=== PATIENT | female | born 1995 | race African-American/Black ===

== ENCOUNTER 2019-10-30 08:04 | Emergency (ER) | payer OTHER, SELFPAY ==
--- NOTE | 2019-10-30 08:32 | ED.SKABFB ---
HPI - Skin/Abscess/Foreign Bdy General Chief complaint: Skin/Abscess/Foreign Body Stated complaint: Earring back stuck in ear lobe Time Seen by Provider: 10/30/19 08:32 Source: patient and RN notes reviewed History of Present Illness HPI narrative: Patient is a 23-year-old female that presents the urgent care with complaints of an earring back stuck in the right earlobe. Patient states that she noticed the swelling yesterday but is uncertain how long the earring back is been on the right earlobe. Patient states that she got her ears pierced, the second hole, in July and was told not to remove the earrings. Patient states that they told her when it came time she may need pliers to remove them . No other acute complaints. Denies any known fever, chills, nausea, vomiting. No acute distress noted. Patient read the plan of care. Related Data Allergies Allergy/AdvReac Type Severity Reaction Status Date / Time No Known Allergies Allergy Verified 10/30/19 08:34 Review of Systems Review of Systems: Narrative: CONSTITUTIONAL: Denies fever, chills, or sweats. EYES: Denies visual changes, redness, or discharge. ENT: Denies rhinorrhea, congestion, sore throat, or otalgia. Reports of right earlobe swelling due to foreign body CARDIOVASCULAR: Denies chest pain, palpitations, or edema. RESPIRATORY: Denies cough or dyspnea. GASTROINTESTINAL: Denies abdominal pain, nausea, vomiting, or diarrhea. GENITOURINARY: Denies dysuria or hematuria. SKIN: Denies rash or itching. MUSCULOSKELETAL: Denies back pain, joint pain, or myalgia. NEUROLOGIC: Denies headache, numbness, or weakness. All other systems reviewed are negative, except as documented in HPI. [facility] Social History Social History Gender identity (if verbalized by the patient): Female Comments At the time of my signature, I reviewed and agree with the nursing past medical, surgical, social, and family history. There is no relevant family history pertinent to the patient complaint. Exam Narrative: Exam Narrative: GENERAL: This is a well-nourished, well-developed patient, in no apparent distress. HEAD: normocephalic, atraumatic. EYES: PERRL. Sclera clear/white. Vision is grossly intact. EARS: Right external ear normal; left external earlobe with mild swelling and notable pustule drainage with assessment, obvious foreign body to the left earlobe NOSE: External nose normal with no obvious nasal discharge THROAT: Mucous membranes moist NECK: Neck supple, non-tender without lymphadenopathy, masses or thyromegaly. SKIN: warm, intact with no suspicious lesions or rash, good texture and turgor. NEURO: awake, alert, and oriented to person, place and time. There were no obvious focal neurologic abnormalities. EXTREMITIES: No clubbing, cyanosis, or edema. Course Vital Signs Vital signs: Vital Signs Temperature 97.9 F 10/30/19 08:34 Pulse Rate 86 10/30/19 08:34 Respiratory Rate 16 10/30/19 08:34 Blood Pressure 132/79 10/30/19 08:34 Pulse Oximetry 100 10/30/19 08:34 Temperature 97.9 F 10/30/19 08:34 Pulse Rate 86 10/30/19 08:34 Respiratory Rate 16 10/30/19 08:34 Blood Pressure 132/79 10/30/19 08:34 Pulse Oximetry 100 10/30/19 08:34 Reviewed Procedures FB Removal Ear Foreign Body #1: Foreign Body Suspected: other (Earring back in the right earlobe) Foreign Body Removed: yes Patient Tolerated Procedure: well Complications: none Additional Comments: Earring back passed through the back of the right earlobe successfully with mild pain and notable clear to yellow pustular drainage. Bilateral earrings removed using hemostat. Patient tolerated well. No complications. MDM - Skin/Abscess/Foreign Bdy MDM Narrative Medical decision making narrative: Advised the to clean the earlobe with an alcohol swab twice a day for the next week. If you notice any increase in swelling or pain over the next 24 to 48 hours, start antibiotic
[2019-10-30 08:34] VITALS: BP 132/79; PULSE 86; RESP 16; TEMP 36.6; O2SAT 100
== END 2019-10-30 08:54 | disposition home or self-care (01) ==
PROVIDERS: Emergency Provider Nurse Practitioner Family
DX: S00.451A Superficial foreign body of right ear, initial encounter (principal); W45.8XXA Other foreign body or object entering through skin, initial encounter
CPT/HCPCS: 99203; G0463